=== PATIENT | male | born 1960 | race Caucasian/White ===

== ENCOUNTER 2024-10-24 09:51 | Emergency (ER) | payer BC, SELFPAY ==
[2024-10-24 09:55] VITALS: BP 148/83; PULSE 69; RESP 18; TEMP 37; O2SAT 94; BMI 34.4
--- NOTE | 2024-10-24 10:20 | ED_ITS ---
HPI - General Adult General Chief complaint: Eye Problems Stated complaint: something in left eye Time Seen by Provider: 10/24/24 10:20 Source: patient Mode of arrival: ambulatory Limitations: no limitations History of Present Illness HPI narrative: Left eye 20/50, right eye 20/25. 63-year-old male presents the emergency department for evaluation of tenderness in his left eye. He was mowing yesterday evening and he noticed what felt like a pine needle when he was going under a tree enter his left eye. He tried to clear it with his fingers and initially thought things were improving but awoke today with continued pain, watering and light sensitivity. Does not were contacts. No neurological changes. No fever. Right opposite eye is unaffected. No prior history of eye surgeries. Tried washing his face and rinsing the eye in the shower but with no improvement. Reports benign otherwise past medical history, no HEENT concerns. History of well-controlled hypertension on 2 agents. ROS is notable for the left eye symptoms only, otherwise denies times 12 systems. Triage in visual acuity noted. Related Data Home Medications ?Medication ?Instructions ?Recorded ?Confirmed amlodipine 5 mg tablet (Norvasc) 5 mg PO DAILY 10/24/24 10/24/24 lisinopril 20 1 tab PO DAILY 10/24/24 10/24/24 mg-hydrochlorothiazide 25 mg tablet Allergies Allergy/AdvReac Type Severity Reaction Status Date / Time No Known Drug Allergies Allergy Verified 10/24/24 10:00 Exam 2 Const: Vital Signs, click to edit/add: Vital Signs - 24 hr 10/24/24 09:55 Temperature 98.6 F Pulse Rate [Pulse Oximeter] 69 Respiratory Rate 18 Blood Pressure [Ri ght Upper Arm] 148/83 H Pulse Oximetry 94 Oxygen Delivery Me thod Room Air Documenting provider has reviewed patient's vital signs: yes Common normals: no apparent distress General appearance: cooperative and well kempt Other: Tearing of left eye with photophobia noted. Otherwise well nourished, well hydrated, good historian. HENMT: Common normals: normocephalic, head/scalp atraumatic and oropharynx normal Head and scalp: normocephalic and atraumatic Eye: Other: Photophobia and watering noting in left eye. Initial visual inspection shows no evidence of foreign body. Right eye normal. Normal extraocular movements, pupillary response. Visual acuity noted from triage. Neck & C-Spine: General: normal visual inspection Resp: Common normals: normal respiratory effort Effort & inspection: able to speak in complete sentences Psych: Appearance: well kempt Activity/motor behavior: appropriate eye contact Mood and affect: euthymic mood Attention/concentration: attention grossly intact Memory/cognition: memory grossly intact Insight: insight good Judgement: judgment good Skin: Common normals: no rashes or lesions noted General skin exam: no rashes or lesions noted Course Course ED Course: 63-year-old male with left eye watering and sensitivity. Recommended flourecin exam. Two drops of tetracaine were inserted into the left eye with good anesthesia. Additional 2 drops were then used to facilitate diagram. With this obvious foreign body which is consistent with a triangular-shaped pine needle was seen at 7:00 a.m. on the left cornea. Remainder of eye, lid was swept thoroughly with no evidence of further foreign body noted. Patient was surprised to hear my findings as his symptoms really did localize to more the 11 o'clock position. He was counseled that unfortunately this is not an uncommon phenomenon. Sterile Q-tip with sterile saline to moisten were used above the pine needle off of the cornea, repeat fluorescein staining shows only the abrasion now and does not seem to localize any foreign body. I was then aggressively irrigated with saline to remove any potential on scene foreign body and remove the dye. Two more drops of tetracaine were inserted for patient comfort and patient was counseled as such. Foreign body seems to be removed. Hip this is the case, symptoms should markedly improved within 24 hours. Will begin erythromycin eye ointment every 4 hours for the next 48 hours. If not markedly improved in 24 hours, patient will contact [facility] for urgent appointment. No driving until his vision has improved to normal. Alarm symptoms reviewed that would warrant ED presentation. Okay to use Tylenol and ibuprofen as needed for mild headache and discomfort. Written instructions provided as well. Vital Signs Vital signs: Initial Vital Signs Temperature 98.6 F 10/24/24 09:55 Temperature Source Temporal Artery Scan 10/24/24 09:55 Pulse Rate 69 10/24/24 09:55 Respiratory Rate 18 10/24/24 09:55 Blood Pressure 148/83 H 10/24/24 09:55 Blood Pressure Mean 104 10/24/24 09:55 Blood Pressure Position Sitting 10/24/24 09:55 Pulse Oximetry 94 10/24/24 09:55 Oxygen Delivery Method Room Air 10/24/24 09:55 Vital Signs Temperature 98.6 F 10/24/24 09:55 Pulse Rate 69 10/24/24 09:55 Respiratory Rate 18 10/24/24 09:55 Blood Pressure 148/83 H 10/24/24 09:55 Pulse Oximetry 94 10/24/24 09:55 Oxygen Delivery Method Room Air 10/24/24 09:55 Temperature 98.6 F 10/24/24 09:55 Pulse Rate 69 10/24/24 09:55 Respiratory Rate 18 10/24/24 09:55 Blood Pressure 148/83 H 10/24/24 09:55 Pulse Oximetry 94 10/24/24 09:55 Oxygen Delivery Method Room Air 10/24/24 09:55 Discharge Plan Discharge Clinical Impression: Corneal foreign body Patient Disposition: Home w/ Parent or Adult Condition: Improved Instructions: Eye Foreign Body (ED) Additional Instructions: As we discussed, there was a small foreign body in your eye right around the 7 o'clock position. It is not uncommon that it will feel inflamed in other areas of the eye but I was able to puff out that foreign body which does seem consistent with the pine needle, as you thought. This of course will leave a bit or scratched on the eye where I have oft out bat piece. This should close up in 24-48 hours. We have started you on an antibiotic, erythromycin. But this a small amount inter eye every 4 hours while you are awake for the next 48 hours. Things really should be markedly better in 24 hours. It is okay to use Tylenol and/or ibuprofen as needed for discomfort. The numbing drops that I use will wear off within a couple of hours. Try to avoid bright light and I do not recommend that you drive until your symptoms have improved markedly. If things have not improved quite a bit within 24 hours, please call over to [facility] to be seen urgently to look for other things that I just cannot detect with my equipment here in the emergency room. [phone] is their phone number. Please return if things worsen in the interim or if there are new and expected changes. Activity Level: Activity as Tolerated Discharge Diet: Regular Prescriptions: No Action lisinopril-hydrochlorothiazide 20-25 mg tablet 1 tab PO DAILY amlodipine [Norvasc] 5 mg tablet 5 mg PO DAILY Stand Alone Forms: [employer] Info Instructions
--- OUTSIDE RECORDS SUMMARY | 2024-10-24 11:21 | XMS_ITS | Encounter Summary ---
Author Organization [facility] Address [address] [place] [id number] Care Team Providers Care Restaurant Shift Leader Name Role Phone Gini Sagastume MD Primary Care Provider [phone] Gini Sgaastume MD Unavailable [phone] Ismael Crowe DPM Unavailable [phone] Gini Sagastume MD Primary Care Provider [phone] Encounter Details Date Type Department Care Team (Late st Contact Info) Description 12/06/2023 MyC Medical Advice [facility] [address] [place] [address] [place], [place] [address] [place], [place] [id number] Social History Tobacco Use Types Packs/Day Years Used Date Smoking Tobacco: Former Cigarettes Q uit: 06/26/2010 Passive Smoke Exposure: Past Smokeless Tobacco: Never Alcohol Use Standard Drinks/Week Comments Not Asked 0 (1 standard drink = 0.6 oz pur e alcohol) Social Connection and Isolation Panel [NHANES] A nswer Date Recorded Frequency of Communication with Friends and Fami ly Not on file 09/27/2023 How often do you get together with friends or re latives? Twice a week 09/27/2023 Attends [employer]ars[employer] Services Not on file 09/26 Active Member of Clubs or Organizations Not on f ile 09/27/2023 Attends Club or Organization Meetings Not on jayro e 09/27/2023 Marital Status Not on file 09/27/2023 PHQ-2 Answer Date Recorded PHQ-2 Score 0 08/16/2023 [facility] - Occupational Stress Questionnaire Answer Date Recorded Do you feel stress - tense, restless, nervous, or anxious, or unable to sleep at night because your mind is troubled all the time - these days? Not at all 09/27/2023 Exercise Vital Sign Answer Date Recorde d On average, how many days pe r week do you engage in moderate to strenuous exercise (like a brisk walk)? 7 days 09/27/2023 On average, how many minutes do you engage in exercise at this level? 40 min 09/27/2023 Adolescent Education Answer Date Record ed Getting School Help Needed Not on file 03/18 Food Insecurity Answer Date Recorded Within the past 12 months, d id you worry that your food would run out before you got money to buy more? No 09/27/2023 Within the past 12 months, d id the food you bought just not last and you didn t have money to get more? No 09/27/2023 Housing Stability Answer Date Recorded Do you have housing? (Michele rios is defined as stable permanent housing and does not include staying outside in a car, in a tent, in an abandoned building, in an overnight halfway, or couch-surfing.) Yes 09/27/2023 Are you worried about losing your housing? No 09/27/2023 Financial Resource Strain Answer Date R ecorded Within the past 12 months, h ave you or your family members you live with been unable to get utilities (heat, electricity) when it was really needed? No 09/27/2023 Transportation Needs Answer Date Record ed Within the past 12 months, h as lack of transportation kept you from medical appointments, getting your medicines, non-medical meetings or appointments, work, or from getting things that you need? No 09/27/2023 Interpersonal Safety Answer Date Record ed Do you feel physically and e motionally safe where you currently live? Yes 09/27/2023 Within the past 12 months, h ave you been hit, slapped, kicked or otherwise physically hurt by someone? No 09/27/2023 Within the past 12 months, h ave you been humiliated or emotionally abused in other ways by your partner or ex-partner? No 09/27/2023 Sex and Gender Information Value Date Recorded Sex Assigned at Male 02/19/2024 6:19 PM CDT Legal Sex Male 8:17 AM [employer] Gender Identity Male 02/19/2024 6:19 PM CDT Sexual Orientation Straight 02/19/2024 6: 19 PM CDT documented as of this encounter Miscellaneous Notes * Telephone Encounter - Cristy Hubbard RN - 12/07/2023 8:47 AM CDT Images from the original note were not included. Routing to provider to advise on antibiotics. OV 11/22/23 documented in this encounter Plan of Treatment Not on file documented as of this encounter Visit Diagnoses Not on filedocumented in this encounter Care Teams Restaurant Shift Leader Relationship Specialty Start Date End Date Gini Sagastume MD [address] [place] [id number] PCP - General Family Medicine 08/24/21 03/01/24 Gini Sagastume MD [address] [place] [address] PCP - General Family Medicine 03/02/24 Gini Sagastume MD [address] [place] [address] Assigned PCP 08/22/21 Ismael Crowe DPM [phone] [facility] [id number] Assigned Surgical Provider 02/04/23 08/17/24 documented as of this encounter
--- OUTSIDE RECORDS SUMMARY | 2024-10-24 11:21 | XMS_ITS | Clinical Summary ---
Author Organization [facility] Address [facility] [place] [address] Care Team Providers Care Betting Clerks Name Role Phone Gini Sagastume MD Primary Care Provider Unavailable Allergies No known active allergies Medications multivitamin-min erals therapeutic tablet Take 1 tablet by mouth once daily. Active hydroCHLOROthiaz keya 50 mg tablet Take 50 mg by mouth once daily. 08/15/19 18 Active lisinopril (PRINIVIL; ZESTRIL) 40 mg tablet Take 40 mg by mouth once daily. 08/15/19 18 Active nabumetone (RELAFEN) 750 mg tablet Take 750 mg by mouth once daily if needed for Pain. 05/02/20 17 Active amLODIPine (NORVASC) 5 mg tablet Take 1 Tablet by mouth once daily. 11/01/19 23 Active acetaminophen (Tylenol Extra Strength) 500 mg tablet Take 1,000 mg by mouth every 6 hours. Max acetaminophen dose: 4000mg in 24 hrs. Active cyclobenzaprine (FLEXERIL) 5 mg tablet Take 5 mg by mouth 3 times daily if needed for Muscle Spasm. 03/02/20 24 Active testosterone cypionate (DEPO-TESTOSTERO NE) 200 mg/mL injection Inject 50 mg intramuscular every 2 weeks. On Tuesdays (every 2 weeks) 09/21/19 23 Active cyanocobalamin, vitamin B-12, (VITAMIN B-12 ORAL) Take 1 Tablet by mouth once daily. Active polyethylene glycol (MIRALAX; GLYCOLAX) 17 g per packet packetIndication s:Alcohol-induce d acute pancreatitis without infection or necrosis (HC) One packet daily in water while on oxycodone to prevent constipation. 03/14/20 24 Active oxyCODONE (ROXICODONE) 5 mg immediate release tabletIndication s:Alcohol-induce d acute pancreatitis without infection or necrosis (HC) Take 1 Tablet (5 mg) by mouth every 4 hours if needed for Pain (For moderate to severe pain.). 18 Tablet 03/14/20 24 Active acetaminophen (TYLENOL) 325 mg tabletIndication s:Alcohol-induce d acute pancreatitis without infection or necrosis (HC) Take 2 Tablets (650 mg) by mouth every 4 hours if needed for Pain (For mild pain.). Max acetaminophen dose: 4000mg in 24 hrs. 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 03/12/2024 Fatty liver 03/12/2024 Polyp of colon 10/09/2023 Hypertension Low testosterone Obstructive sleep apnea syndrome, severe Overview (03/12/2024): AHI 75 CPAP 12 Immunizations Immunization Administration Dates Next Due Tdap 11/16/2015 Family History Medical History Relation Name Comments Other Brother Sleep apnea syn drome Diabetes Father Heart attack Father Hypertension Father Diabetes Mother Stroke Mother Relation Name Status Comments Brother Father Mother Social History Tobacco Use Types Packs/Day Years Used Date Smoking Tobacco: Former Cigarettes 1 30 0 01/13/1980 - 01/12/2010 Smokeless Tobacco: Never Alcohol Use Standard Drinks/Week Comments Yes 0 (1 standard drink = 0.6 oz pur e alcohol) 2 beers/day Social Connections Answer Date Recorded Do you often feel lonely or isolated from those around you? 0 03/12/2024 Financial Resource Strain Answer Date R ecorded Difficulty of Paying Living Expenses 3 07/26/2024 Difficulty of Paying Living Expenses Not on file 07/26/2024 Food Insecurity Answer Date Recorded Do you worry your food will run out before you are able to buy more? 1 03/12/2024 Transportation Needs Answer Date Record ed Does lack of transportation keep you from medica l appointments? 1 03/12/2024 Does lack of transportation keep you from work, meetings or getting things that you need? 1 03/12/2024 Housing Stability Answer Date Recorded What is your housing situation today? 1 03/12/2024 Interpersonal Safety Answer Date Record ed Are you being hit, kicked, p ushed or yelled at (see row info)? No 03/12/2024 Interpersonal Safety Abuse 12 - 18 Not on file 03/12/2024 Interpersonal Safety Ambulatory Vulnerability No t on file 03/12/2024 Utilities Answer Date Recorded Do you have trouble paying f or utilities (for example, heat, electricity, water, phone)? 1 03/12/2024 Sex and Gender Information Value Date Recorded Sex Assigned at Not on file Legal Sex Male 12:42 PM CDT Gender Identity Not on file Sexual Orientation Not on file Obstetrics History Last Filed Vital Signs Vital Sign Reading Time Taken Comments Blood Pressure 133/92 03/14/2024 7:38 AM CDT Pulse 73 03/14/2024 7:38 AM CDT Temperature 37.1 C (98.7 F) 03/14/2024 7:38 AM CDT Respiratory Rate 18 03/14/2024 7:38 AM CDT Oxygen Saturation 94% 03/14/2024 7:38 AM CDT Inhaled Oxygen Concentration - - Weight 126.2 kg (278 lb 4.8 oz) 03/14/2024 6:00 AM CDT Height 188 cm (6' 2) 03/12/2024 4:30 PM CDT Body Mass Index 35.73 03/12/2024 4:30 PM CDT Plan of Treatment Health Maintenance Due Date Last Done Comments Depression screening for age 12+ 1973 HIV for age 15-65 1976 BMI (ht and wt on same day) for age 18+ 12/31/1979 Hepatitis C screening for age 18-79 12/31/1979 Lipids for age 45-75 2006 Pneumococcal series for age 50+ (1 of 1 - PCV) 12/31/2011 Zoster (shingles) series for age 50+ (1 of 2) 12/31/2011 RSV vaccine for adults or pr egnancy (1 - Risk 60-74 years 1-dose series) 2021 COVID-19 vaccine series ( season) 2024 05/04/2021, 10/22/2020, 09/24/2020 Influenza Vaccine (Season Ended) 2025 Tetanus booster 11/15/2025 11/16/2015 Colonoscopy through age 75 10/05/2030 10/06/2023 Tdap Completed 11/16/2015 Procedures Procedure Name Priority Date/Time Associated Diagnosis Comments COLONOSCOPY 10/06/2023 8:40 AM CDT from Last 3 Months or Most Recently Relevant to Health Maintenance Results * COLONOSCOPY (10/06/2023 8:40 AM CDT) 10/06/2023 8:40 AM CDT Narrative Transcriptions Souleymane Linares MD - 10/06/2023 9:32 AM CDT Surgical Services - Endoscopy Patient Name: Raymond Zapata Procedure Date: 10/06/2023 Gender: Male Date of : 1960 Admit Type: Ambulatory Procedure: Colonoscopy Proceduralist: Souleymane Linares MD, Ene Nguyen, MICHAEL (Nurse) Indications/Pre-Op Diagnosis: Positive Cologuard test Medications: Monitored Anesthesia Care Procedure Description: The patient indicates that they have read and understood the preoperative endoscopy consent form. The patient indicates they understand the risks and benefits of the procedure. We specifically discussed the risk of bleeding and/or perforation requiringoperation. The patient indicates they have no further questions and wish to proceed. With this in mind the patient is brought to the procedureroom today. The endoscope [id number] was passed through the anus andadvanced to the cecum, identified by appendiceal orifice and ileocecal valve.The ileocecal valve, appendiceal orifice, and rectum were photographed.The entire colon was well visualized. The colonoscopy was performedwithout difficulty. The patient tolerated the procedure well. The quality ofthe bowel preparation was good. The quality of the bowel preparation was evaluated using the BBPS (Ira Bowel Preparation Scale) with scores of: Right Colon = 2 (minor amount of residual staining, smallfragments of stool and/or opaque liquid, but mucosa seen well), TransverseColon = 2 (minor amount of residual staining, small fragments of stool and/or opaque liquid, but mucosa seen well) and Left Colon = 2 (minor amountof residual staining, small fragments of stool and/or opaque liquid, but mucosa seen well). The total BBPS score equals 6. Scope withdrawaltime was 26 minutes. Complications: No immediate complications. Estimated Blood Loss & Specimen: Estimated blood loss was minimal. Specimen collected: Yes and sent to Laboratory Findings: The perianal and digital rectal examinations were normal. A 5 mm polyp was found in the ascending colon. The polyp was semi-pedunculated. The polyp was removed with a cold snare. Resection and retrieval were complete. Two sessile polyps were found in the sigmoid colon. The polyps were 2to 3 mm in size. These polyps were removed with a cold snare. Resectionand retrieval were complete. A 8 mm polyp was found in the distal rectum. The polyp waspedunculated. The polyp was removed with a cold snare. Resection and retrieval were complete. Multiple medium-mouthed diverticula were found in the sigmoidcolon. Impressions/Post-Op Diagnosis: - One 5 mm polyp in the ascending colon, removed with a cold snare. Resected and retrieved. - Two 2 to 3 mm polyps in the sigmoid colon, removed with a coldsnare. Resected and retrieved. - One 8 mm polyp in the distal rectum, removed with a cold snare. Resected and retrieved. - Diverticulosis in the sigmoid colon. Recommendation: - Patient has a contact number available for emergencies. The signsand symptoms of potential delayed complications were discussed with the patient. Return to normal activities tomorrow. Written discharge instructions were provided to the patient. - Repeat colonoscopy date to be determined after pending pathology results are reviewed for surveillance. Souleymane Linares MD 10/06/2023 9:32:16 AM This report has been signed electronically. Note Initiated On: 10/06/2023 8:40 AM Souleymane Linares MD PROCEDURE ORD Fin al Result from Last 3 Months or Most Recently Relevant to Health Maintenance Insurance * Guarantor: Raymond Zapata Account Type Relation to Patient Date of Phone Billing Address Personal/Family Self 1960 [id number] [place] [address] [employer] [facility] * Guarantor: Raymond Zapata Account Type Relation to Patient Date of Phone Billing Address Personal/Family Self 1960 [id number] [place] [id number] [employer] [facility] Advance Directives * Full Code (Latest Code Status on File) Date Activated Date Inactivated Comments 03/12/2024 5:19 PM 03/14/2024 12:17 PM Question Answer Comments Code Status Discussion: Reviewed Preferences * Full Code Date Activated Date Inactivated Comments 10/06/2023 7:17 AM 10/06/2023 1:21 PM Question Answer Comments Code Status Discussion: Unable to Assess Preferences, Provider to review later * Full Code Date Activated Date Inactivated Comments 03/15/2018 1:17 PM 03/15/2018 4:47 PM Question Answer Comments Code Status Discussion: Discussed * Full Code Date Activated Date Inactivated Comments 03/15/2018 11:57 AM 03/15/2018 1:17 PM * Full Code Date Activated Date Inactivated Comments 03/15/2018 10:41 AM 03/15/2018 11:57 AM Care Teams Betting Clerks Relationship Specialty Start Date End Date Gini Sagastume MD [address] [place] [address] PCP - General Family Practice 01/12/13
--- OUTSIDE RECORDS SUMMARY | 2024-10-24 11:21 | XMS_ITS | Encounter Summary ---
Author Organization [place] Address [address] [place] [address] Care Team Providers Care Bottling Room Worker Name Role Phone Gini Sagastume MD Unavailable [phone] Gini Sagastume MD Primary Care Provider [phone] Encounter Details Date Type Department Care Team (Latest Contact Info) Description 10/01/2024 Travel Social History Tobacco Use Types Packs/Day Years Used Date Smoking Tobacco: Former Cigarettes Q uit: 06/26/2010 Passive Smoke Exposure: Past Smokeless Tobacco: Never Alcohol Use Standard Drinks/Week Comments Not Asked 0 (1 standard drink = 0.6 oz pur e alcohol) Social Connection and Isolation Panel [NHANES] A nswer Date Recorded Frequency of Communication with Friends and Fami ly Not on file 10/01/2024 How often do you get togethe r with friends or relatives? Three times a week 10/01/2024 Attends Confucianist Services Not on file 10/01 Active Member of Clubs or Organizations Not on f ile 10/01/2024 Attends Club or Organization Meetings Not on jayro e 10/01/2024 Marital Status Not on file 10/01/2024 PHQ-2 Answer Date Recorded PHQ-2 Score 0 10/02/2024 [facility] [place] [facility] Occupat ional Health - Occupational Stress Questionnaire Answer Date Recorded Do you feel stress - tense, restless, nervous, or anxious, or unable to sleep at night because your mind is troubled all the time - these days? Not at all 10/01/2024 Exercise Vital Sign Answer Date Recorde d On average, how many days pe r week do you engage in moderate to strenuous exercise (like a brisk walk)? 6 days 10/01/2024 On average, how many minutes do you engage in exercise at this level? 60 min 10/01/2024 Adolescent Education Answer Date Record ed Getting School Help Needed Not on file 03/18 Food Insecurity Answer Date Recorded Within the past 12 months, d id you worry that your food would run out before you got money to buy more? No 10/01/2024 Within the past 12 months, d id the food you bought just not last and you didn t have money to get more? No 10/01/2024 Housing Stability Answer Date Recorded Do you have housing? (Housin g is defined as stable permanent housing and does not include staying outside in a car, in a tent, in an abandoned building, in an overnight long-term, or couch-surfing.) Yes 10/01/2024 Are you worried about losing your housing? No 10/01/2024 Financial Resource Strain Answer Date R ecorded Within the past 12 months, h ave you or your family members you live with been unable to get utilities (heat, electricity) when it was really needed? No 10/01/2024 Transportation Needs Answer Date Record ed Within the past 12 months, h as lack of transportation kept you from medical appointments, getting your medicines, non-medical meetings or appointments, work, or from getting things that you need? No 10/01/2024 Interpersonal Safety Answer Date Record ed Do you feel physically and e motionally safe where you currently live? Yes 10/02/2024 Within the past 12 months, h ave you been hit, slapped, kicked or otherwise physically hurt by someone? No 10/02/2024 Within the past 12 months, h ave you been humiliated or emotionally abused in other ways by your partner or ex-partner? No 10/02/2024 Sex and Gender Information Value Date Recorded Sex Assigned at Male 02/19/2024 6:19 PM CDT Legal Sex Male 8:17 AM MANAGER BEVERAGE Gender Identity Male 02/19/2024 6:19 PM CDT Sexual Orientation Straight 02/19/2024 6: 19 PM CDT documented as of this encounter Plan of Treatment Not on file documented as of this encounter Visit Diagnoses Not on filedocumented in this encounter Care Teams Bottling Room Worker Relationship Specialty Start Date End Date Gini Sagastume MD [address] [place] [address] PCP - General Family Medicine 03/02/24 Gini Sagastume MD [address] [place] [address] Assigned PCP 08/22/21 documented as of this encounter
--- OUTSIDE RECORDS SUMMARY | 2024-10-24 11:21 | XMS_ITS | Encounter Summary ---
Author Organization [place] Address [address] [place] [address] Care Team Providers Care Box Nailer Name Role Phone Gini Sagastume MD Primary Care Provider [phone] Gini Sagastume MD Unavailable [phone] Ismael Crowe DPM Unavailable [phone] Gini Sagastume MD Primary Care Provider [phone] Reason for Visit * Reason Comments Medication Refill Encounter Details Date Type Department Care Team (Late st Contact Info) Description 07/25/2022 Refill [facility] [address] [place] [address] Scotty Lai PA [address] [place], [place] [id number] Medication Refill Social History Tobacco Use Types Packs/Day Years Used Date Smoking Tobacco: Former Smokeless Tobacco: Never Alcohol Use Standard Drinks/Week Comments Not Asked 0 (1 standard drink = 0.6 oz pur e alcohol) Sex and Gender Information Value Date Recorded Sex Assigned at Male 02/19/2024 6:19 PM CDT Legal Sex Male 8:17 AM LEAD WELDER Gender Identity Male 02/19/2024 6:19 PM CDT Sexual Orientation Straight 02/19/2024 6: 19 PM CDT COVID-19 Exposure Response Date Recorded In the last 10 days, have yo u been in contact with someone who was confirmed or suspected to have Coronavirus/COVID-19? No / Unsure 07/26/2022 3:30 PM LEAD WELDER documented as of this encounter Miscellaneous Notes * Telephone Encounter - Yi Lala - 07/27/2022 12:13 PM CST Pt scheduled with [facility] 2.22.23 WELDER * Telephone Encounter - Gini Sagastume MD - 07/27/2022 10:20 AM LEAD WELDER Please contact patient. Due for visit with me. I sent in 30 day supply WELDER * Telephone Encounter - Corey Bowen RN - 07/27/2022 9:47 AM CST Images from the original note were not included. Routing refill request to provider for review/approval because: No Provider appts, many RN upcoming appts Care team please reach out to patient to schedule appointment Blood pressure under 140/90 in past 12 months Normal ALT on file in past 12 months Normal AST on file in past 12 months Normal CBC on file in past 12 months Medication is active on med list Normal serum creatinine on file in past 12 months MICHAEL [facility] WELDER documented in this encounter Plan of Treatment Not on file documented as of this encounter Visit Diagnoses Diagnosis Pain- Primary Generalized pain documented in this encounter Care Teams Box Nailer Relationship Specialty Start Date End Date Gini Sagastume MD [address] [place] [address] PCP - General Family Medicine 08/24/21 03/01/24 Gini Sagastume MD [address] [place] [address] PCP - General Family Medicine 03/02/24 Gini Sagastume MD [address] [place] [address] Assigned PCP 08/22/21 Ismael Crowe DPM [address] [facility] [place] [address] Assigned Surgical Provider 02/04/23 08/17/24 documented as of this encounter
--- OUTSIDE RECORDS SUMMARY | 2024-10-24 11:21 | XMS_ITS | Clinical Summary ---
Author Organization [place] Address [address] [place] [address] Care Team Providers Care Aircraft Systems Repairer Name Role Phone Gini Sagastume MD Unavailable [phone] Gini Sagastume MD Primary Care Provider [phone] Allergies No known active allergies Medications Multiple Vitamins-Mineral s (MULTIVITAMIN OR) Active acetaminophen (TYLENOL) 325 MG tablet Take 650 mg by mouth. 03/14/20 24 Active cyanocobalamin (VITAMIN B-12) 1000 MCG tablet Take 1 tablet by mouth daily. Active syringe/needle, disp, (B-D LUER-MITRA SYRINGE) 23G X 1 3 ML MISCIndications: Other specified abnormal findings of blood chemistry USE DIRECTED 6 each 4 09/06/19 25 Active Needle, Disp, (BD DISP NEEDLES) 18G X 1-1/2 MISCIndications: Other specified abnormal findings of blood chemistry USE DIRECTED 6 each 09/06/19 25 Active testosterone cypionate (DEPOTESTOSTERON E) 200 MG/ML injectionIndicat ions:Low testosterone in male Inject 0.25 mLs (50 mg) into the muscle every 14 days 1 mL 5 09/06/19 25 Active nabumetone (RELAFEN) 750 MG tabletIndication s:Pain Take 1 tablet (750 mg) by mouth daily. 30 tablet 5 10/03/19 25 Active amLODIPine (NORVASC) 5 MG tabletIndication s:Primary hypertension Take 1 tablet (5 mg) by mouth daily. 90 tablet 4 10/03/19 25 Active hydrochlorothiaz keya (HYDRODIURIL) 50 MG tabletIndication s:Primary hypertension Take 1 tablet (50 mg) by mouth daily. 90 tablet 4 10/03/19 25 Active lisinopril (ZESTRIL) 40 MG tabletIndication s:Primary hypertension Take 1 tablet (40 mg) by mouth daily. 90 tablet 4 10/03/19 25 Active syringe, disposable, 1 ML MISCIndications: Low testosterone in male 1 each every 28 (twenty-eigh t) days 3 each 4 07/06/19 24 025 Discontinued (Therapy completed (No AVS)) Needle, Disp, (B-D DISP NEEDLE) 25G X 1 MISCIndications: Low testosterone in male 1 each every 28 (twenty-eigh t) days 3 each 4 07/06/19 24 025 Discontinued (Therapy completed (No AVS)) nabumetone (RELAFEN) 750 MG tabletIndication s:Pain Take 1 tablet (750 mg) by mouth daily 30 tablet 5 09/06/19 24 025 Discontinued (Reorder (No AVS)) cyclobenzaprine (FLEXERIL) 5 MG tabletIndication s:Acute right-sided low back pain with right-sided sciatica Take 1 tablet (5 mg) by mouth 3 times daily as needed for muscle spasms. 30 tablet 03/02/20 24 025 Discontinued (Med Rec(No AVS / No eCancel)) oxyCODONE (ROXICODONE) 5 MG tablet Take 5 mg by mouth. 03/14/20 24 025 Discontinued (Med Rec(No AVS / No eCancel)) amLODIPine (NORVASC) 5 MG tabletIndication s:Primary hypertension Take 1 tablet (5 mg) by mouth daily 90 tablet 1 06/17/20 24 025 Discontinued (Reorder (No AVS)) lisinopril (ZESTRIL) 40 MG tabletIndication s:Primary hypertension TAKE ONE TABLET BY MOUTH DAILY 90 tablet 1 08/13/19 25 025 Discontinued (Reorder (No AVS)) hydrochlorothiaz keya (HYDRODIURIL) 50 MG tabletIndication s:Primary hypertension TAKE ONE TABLET BY MOUTH DAILY 90 tablet 1 08/13/19 25 025 Discontinued (Reorder (No AVS)) Active Problems Problem Noted Date Diagnosed Date Fatty liver 03/12/2024 Polyp of colon 10/09/2023 Class 2 severe obesity due t o excess calories with serious comorbidity in adult 01/30/2023 Hypertension 04/19/2022 Obesity 04/19/2022 Periodic limb movement disorder 04/19/2022 Restless legs syndrome 04/19/2022 Obstructive sleep apnea syndrome, severe 017 Overview (03/19/2024): AHI 75 CPAP 12 Low testosterone 08/07/2012 Resolved Problems Problem Noted Date Diagnosed Date Resolved Date Alcohol-induced acute pancre atitis without infection or necrosis 03/12/2024 03/19/2024 Encounters Date Type Department Care Team Description 10/02/2024 5:00 PM CDT Office Visit [address] [address] Gini Sagastume MD Routine general medical examination at a health care facility (Primary Dx); Screening for prostate cancer; Pain; Primary hypertension; Elevated prostate specific antigen (PSA); Class 2 severe obesity due to excess calories with serious comorbidity and body mass index (BMI) of 37.0 to 37.9 in adult (H); Low testosterone; Fatty liver 10/01/2024 Travel 09/05/[address] [address] Gini Sagastume MD Medication Refill 08/13/[address] [address] Gini Sagastume MD Medication Refill 08/07/2024 5:00 PM FLIGHT TEST SHOP MECHANIC Ancillary Procedure [address] [address] Scotty Lai PA Left anterior shoulder pain 08/06/2024 7:00 AM FLIGHT TEST SHOP MECHANIC Office Visit [address] [address] Scotty Lai PA Left anterior shoulder pain (Primary Dx) 08/06/2024 Travel from Last 3 Months Immunizations Name Administration Dates Next Due COVID-19 Monovalent 18+ (Moderna) 05/04/2021,,09/24/2020 Flu, Unspecified 03/27/2020 Hepatitis B, Adult (Energix- B/Recombivax HB) 05/31/2022,05/03/2022 Influenza Vaccine 18-64 (Flublok) 04/18/2023,,04/06/2021 Influenza Vaccine >6 months,quad, PF 03/26/2019 Influenza Vaccine Trivalent (FluBlok) 03/19/2024 Influenza Vaccine, 6+MO IM ( QUADRIVALENT W/PRESERVATIVES) 03/26/2019 Influenza,INJ,MDCK,PF,Quad >6mo(Flucelvax) 03/27 TDAP (Adacel,Boostrix) 11/16/2015 Zoster recombinant adjuvanted (Shingrix) 024,05/03/2022 Social History Tobacco Use Types Packs/Day Years Used Date Smoking Tobacco: Former Cigarettes Q uit: 06/26/2010 Passive Smoke Exposure: Past Smokeless Tobacco: Never Tobacco Cessation:Counseling Given: Not Answered Alcohol Use Standard Drinks/Week Comments Not Asked 0 (1 standard drink = 0.6 oz pur e alcohol) Social Connection and Isolation Panel [NHANES] A nswer Date Recorded Frequency of Communication with Friends and Fami ly Not on file 10/01/2024 How often do you get togethe r with friends or relatives? Three times a week 10/01/2024 Attends Taoist Services Not on file 10/01 Active Member of Clubs or Organizations Not on f ile 10/01/2024 Attends Club or Organization Meetings Not on jayro e 10/01/2024 Marital Status Not on file 10/01/2024 PHQ-2 Answer Date Recorded PHQ-2 Score 0 10/02/2024 [facility] [place] of Occupat ional Health - Occupational Stress [...] Date Recorded Do you have housing? (Michele g is defined as stable permanent housing and does not include staying outside in a car, in a tent, in an abandoned building, in an overnight nursing home, or couch-surfing.) Yes 10/01/2024 Are you worried [...] PM CDT Legal Sex Male 8:17 AM FLIGHT TEST SHOP MECHANIC Gender Identity Male 02/19/2024 6:19 PM CDT Sexual Orientation Straight 02/19/2024 6: 19 PM CDT Last Filed Vital Signs Vital Sign Reading Time Taken Comments Blood Pressure 132/80 10/02/2024 4:58 PM CDT Pulse 65 10/02/2024 4:58 PM CDT Temperature 36.6 C (97.8 F) 10/02/2024 4:58 PM CDT Respiratory Rate 16 10/02/2024 4:58 PM CDT Oxygen Saturation 96% 10/02/2024 4:58 PM CDT Inhaled Oxygen Concentration - - Weight 133.4 kg (294 lb 3.2 oz) 10/02/2024 4:58 PM CDT Height 189.7 cm (6' 2.69) 10/02/2024 4:58 PM CD T Body Mass Index 37.08 10/02/2024 4:58 PM CDT Plan of Treatment Health Maintenance Due Date Last Done Comments CT COLONOGRAPHY 1960 FLEX SIG 1960 Pneumococcal Vaccine: 50+ Years (1 of 1 - PCV) 12/31/2011 FIT 03/18/2020 03/18/2019 COVID-19 Vaccine ( season) 2024 05/04/2021, 10/22/2020, 09/24/2020 ANNUAL REVIEW OF HM ORDERS 08/06/202508/06, 08/16/2023, 09/07/2022 BMP 10/02/2025 10/02/2024, 04/0 08/2023, 09/10/2022, Additional history exists LIPID 10/02/2025 10/02/2024, 04/0 08/2023, 09/10/2022, Additional history exists PSA 10/02/2025 10/02/2024, 04/0 08/2023, 09/27/2023, Additional history exists YEARLY PREVENTIVE VISIT 10/02/2025 10/02/2024, 09/26 DTAP/TDAP/TD IMMUNIZATION (2 - Td or Tdap) 11/15/2025 11/16/2015 sDNA (Cologuard) 08/27/2026 08/28/2023, 02/03/2021 DIABETES SCREENING 10/03/2027 10/02/2024, 0 09/27/2023, 09/10/2022, Additional history exists ADVANCE CARE PLANNING 10/02/2029 10/02/2024 , 09/27/2023, 09/27/2023 COLONOSCOPY 10/05/2030 10/06/2023 COLORECTAL CANCER SCREENING 10/05/2030 RSV VACCINE (1 - 1-dose 75+ series) 2036 INFLUENZA VACCINE Completed 03/19/2024, , 04/19/2022, Additional history exists ZOSTER IMMUNIZATION Completed 03/19/2024, 2 PHQ-2 (once per calendar year) Completed 10/02/2024, 08/06/2024, 08/16/2023, Additional history exists HEPATITIS C SCREENING Discontinued HIV SCREENING Discontinued HPV IMMUNIZATION Aged Out No longer e ligible based on patient's age to complete this topic LUNG CANCER SCREENING Discontinued MENINGITIS IMMUNIZATION Aged Out No l onger eligible based on patient's age to complete this topic Procedures Procedure Name Priority Date/Time Associated Diagnosis Comments COMPREHENSIVE METABOLIC PANEL Routine 10/02/2024 5:25 PM CDT Fatty liver PROSTATE SPECIFIC ANTIGEN SCREEN Routine 10/02/2024 5:25 PM CDT Screening for prostate cancer LIPID REFLEX TO DIRECT LDL PANEL Routine 10/02/2024 5:25 PM CDT Fatty liver XR SHOULDER LEFT G/E 3 VIEWS STAT 08/07/2024 4:55 PM FLIGHT TEST SHOP MECHANIC Left anterior shoulder pain ABSTRACT COLOGUARD-NO CHARGE Routine 02/03/2021 5:15 AM CDT FECAL COLORECTAL CANCER SCREEN FIT Routine 03/18/2019 1:01 PM CDT from Last 3 Months or Most Recently Relevant to Health Maintenance Results * (ABNORMAL) PROSTATE SPEC ANTIGEN SCREEN (10/02/2024 5:25 PM CDT) Prostate Specific Antigen Screen 10.90(H) 0.00 - 4.50 ng/mL 10/03/2024 3:03 PM CDT [facility] Blood BLOOD SPECIMEN / Unknown Venipuncture / Unknown 10/02/2024 5:25 PM CDT 10/02/2024 5:25 PM CDT Narrative [facility] - 10/03/2024 3:03 PM CDT This result is obtained using the Yousif Elecsys total PSA method on the fredy e801 immunoassay analyzer, which is an ultrasensitive method. Results obtained with different assay methods or kits cannot be used interchangeably. This test is intended for initial prostate cancer screening. PSA values exceeding the age-specific limits are suspicious for prostate disease, but additional testing, such as prostate biopsy, is needed to diagnose prostate pathology. The [employer] [employer] recommends annual examination with digital rectal examination and serum PSA beginning at age 50 and for men with a life expectancy of at least 10 years after detection of prostate cancer. For men in high-risk groups, such as Americans or men with a first-degree relative diagnosed at a younger age, testing should begin at a younger age. It is generally recommended that information be provided to patients about the benefits and limitations of testing and treatment so they can make informed decisions. us Gini Sagastume MD LAB - BLOOD ORDERABLES Jami dinero Result [facility] [address], [address] [place] [address] * (ABNORMAL) Lipid panel reflex to direct LDL Non-fasting (10/02/2024 5:25 PM CDT) Cholesterol 174 <200 mg/dL 10/03/2024 3:03 PM CDT [facility] Triglycerides 130 <150 mg/dL 10/03/2024 3:03 PM CDT [facility] Direct Measure HDL 36(L) >=40 mg/dL 10/03/2024 3:03 PM CDT [facility] LDL Cholesterol Calculated 112(H) <100 mg/dL 10/03/2024 3:03 PM CDT [facility] Non HDL Cholesterol 138(H) <130 mg/dL 10/03/2024 3:03 PM CDT [facility] Patient Fasting > 8hrs? No 10/03/2024 3:03 PM CDT [facility] Blood BLOOD SPECIMEN / Unknown Venipuncture / Unknown 10/02/2024 5:25 PM CDT 10/02/2024 5:25 PM CDT Narrative [facility] - 10/03/2024 3:03 PM CDT Cholesterol Desirable: < 200 mg/dL Borderline High: 200 - 239 mg/dL High: >= 240 mg/dL Triglycerides Normal: < 150 mg/dL Borderline High: 150 - 199 mg/dL High: 200-499 mg/dL Very High: >= 500 mg/dL Direct Measure HDL Female: >= 50 mg/dL Male: >= 40 mg/dL LDL Cholesterol Desirable: < 100 mg/dL Above Desirable: 100 - 129 mg/dL Borderline High: 130 - 159 mg/dL High: 160 - 189 mg/dL Very High: >= 190 mg/dL Non HDL Cholesterol Desirable: < 130 mg/dL Above Desirable: 130 - 159 mg/dL Borderline High: 160 - 189 mg/dL High: 190 - 219 mg/dL Very High: >= 220 mg/dL us Gini Sagastume MD LAB - BLOOD ORDERABLES Jami l Result [facility] [address] [place] [address] * Comprehensive metabolic panel (10/02/2024 5:25 PM CDT) Sodium 138 135 - 145 mmol/L 10/03/2024 3:03 PM CDT [facility] Potassium 3.9 3.4 - 5.3 mmol/L 10/03/2024 3:03 PM CDT [facility] Carbon Dioxide (CO2) 25 22 - 29 mmol/L 10/03/2024 3:03 PM CDT [facility] Anion Gap 13 7 - 15 mmol/L 10/03/2024 3:03 PM CDT [facility] Urea Nitrogen 18.7 8.0 - 23.0 mg/dL 10/03/2024 3:03 PM CDT [facility] Creatinine 0.84 0.67 - 1.17 mg/dL 10/03/2024 3:03 PM CDT [facility] GFR Estimate >90 >60 mL/min/1.7 3m2 10/03/2024 3:03 PM CDT [facility] Comment:eGFR calculated us2020 CKD-EPI equation. Calcium 9.9 8.8 - 10.4 mg/dL 10/03/2024 3:03 PM CDT [facility] Chloride 100 98 - 107 mmol/L 10/03/2024 3:03 PM CDT [facility] Glucose 96 70 - 99 mg/dL 10/03/2024 3:03 PM CDT [facility] Alkaline Phosphatase 56 40 - 150 U/L 10/03/2024 3:03 PM CDT [facility] AST 35 0 - 45 U/L 10/03/2024 3:03 PM CDT [facility] ALT 61 0 - 70 U/L 10/03/2024 3:03 PM CDT [facility] Protein Total 7.0 6.4 - 8.3 g/dL 10/03/2024 3:03 PM CDT [facility] Albumin 4.4 3.5 - 5.2 g/dL 10/03/2024 3:03 PM CDT [facility] Bilirubin Total 0.7 <=1.2 mg/dL 10/03/2024 3:03 PM CDT [facility] Patient Fasting > 8hrs? No 10/03/2024 3:03 PM CDT [facility] Blood BLOOD SPECIMEN / Unknown Venipuncture / Unknown 10/02/2024 5:25 PM CDT 10/02/2024 5:25 PM CDT Gini Sagastume MD LAB - BLOOD ORDERABLES Jami dinero Result [facility] [address] [facility] [address] [facility] [place] [address] * XR Shoulder Left G/E 3 Views (08/07/2024 4:55 PM FLIGHT TEST SHOP MECHANIC) Anatomical Region Laterality Modality Shoulder, Left Shoulder Left Computed Radiography 08/07/2024 4:55 PM FLIGHT TEST SHOP MECHANIC Impressions 08/07/2024 5:53 PM FLIGHT TEST SHOP MECHANIC IMPRESSION: Mild osteoarthrosis of the AC joint and glenohumeral joint. Otherwise negative. No evidence of fracture. No subluxation or dislocation. Narrative 08/07/2024 5:53 PM FLIGHT TEST SHOP MECHANIC EXAM: XR SHOULDER LEFT G/E 3 VIEWS LOCATION: [facility] DATE: 08/07/2024 INDICATION: Left anterior shoulder pain. COMPARISON: None. Procedure Note Ryan Vazquez MD - 08/07/2024 EXAM: XR SHOULDER LEFT G/E 3 VIEWS LOCATION: [facility] DATE: 08/07/2024 INDICATION: Left anterior shoulder pain. COMPARISON: None. IMPRESSION: Mild osteoarthrosis of the AC joint and glenohumeral joint.Otherwise negative. No evidence of fracture. No subluxation ordislocation. Scotty [facility] ORDERA BLES Final Result * ABSTRACT COLOGUARD-NO CHARGE (02/03/2021 5:15 AM CDT) COLOGUARD-ABST RACT Negative [facility] 02/03/2021 5:15 AM CDT Narrative [facility] - 02/03/2021 5:15 AM CDT [facility] Lab Result Provider Outside LABORATORY Final Result [facility] [address] [place] [id number], [facility] [phone] * Fecal colorectal cancer screen FIT (03/18/2019 1:01 PM CDT) Occult Blood Screen FIT Positive [facility] 03/18/2019 1:01 PM CDT Narrative [facility] - 03/18/2019 1:01 PM CDT POC Test Comments: FWD to [facility] FIT POC Test Comments: Lab Test Performed by: [facility] [address] [place] [address] Historical Provider LAB - STOOLS ORDERABLES Ajmi l Result [facility] [address] [place] [address], [facility] [phone] from Last 3 Months or Most Recently Relevant to Health Maintenance Insurance * Guarantor: Raymond Zapata Account Type Relation to Patient Date of Phone Billing Address Personal/Family Self 1960 [id number] [place] [address] * Guarantor: Raymond Zapata Account Type Relation to Patient Date of Phone Billing Address Personal/Family Self 1960 [id number] [place] [address] BC[employer] OUT OF STATE * Guarantor: Raymond Zapata Account Type Relation to Patient Date of Phone Billing Address Personal/Family Self 1960 [id number] [place] [address] [employer] OUT OF STATE Care Teams Aircraft Systems Repairer Relationship Specialty Start Date End Date Gini Sagastume MD [address] [place] [address] PCP - General Family Medicine 03/02/24 Gini Sagastume MD [address] [place] [address] Assigned PCP 08/22/21
--- OUTSIDE RECORDS SUMMARY | 2024-10-24 11:21 | XMS_ITS | Clinical Summary ---
Author Organization [facility] Address [address] [place] [address] Care Team Providers Care Blood Bank Calendar Control Clerk Name Role Phone None Reported, Pcp Primary Care Provider Unavail able Source Comments Patient records contain information from all sites at [facility]. For routine questions regarding patient records, call [phone] during business hours, M-F 8:00 AM - 5:00 PM Central Time. Record requests for emergency care only can be directed to [phone] at any time.[facility] Allergies No known active allergies Medications testosterone cypionate (DEPO-TESTOSTERO NE) 200 mg/mL injection Inject 50 mg intramuscul ursula. 09/20/2022 Active BD Luer-Carmen Syringe 3 mL 23 x 1 syringe 07/07/2023 Active BD Regular Bevel [place] 18 gauge x 1 1/2 needle 07/07/2023 Act huang nabumetone (RELAFEN) 750 mg tablet Take 750 mg by mouth daily as needed for pain. Active multivitamin,tx- minerals (Super Thera Diana M) tablet Take 1 tablet by mouth daily. Active hydroCHLOROthiaz keya (HYDRODIURIL) 50 mg tablet Take 50 mg by mouth daily. 09/07/2022 Active amLODIPine (NORVASC) 5 mg tablet Take 1 tablet by mouth daily. 08/16/2023 Active lisinopriL (PRINIVIL,ZESTRI L) 40 mg tablet Take 1 tablet by mouth daily. 08/16/2023 Active Active Problems Problem Noted Date Diagnosed Date Morbid Severe Obesity Due To Excess Calories 12/2022 Restless Leg Syndrome 04/19/2022 Periodic Limb Movement Disorder 04/19/2022 Hypertension Essential Primary 09/17/2018 Apnea Sleep Obstructive 05/31/2017 Other Specified Abnormal Findings Of Blood Chemi stry 08/07/2012 Immunizations Immunization Administration Dates Next Due HepB Adult 05/31/2022,05/03/2022 Influenza, Injectable, Mdck, Preservative Free, Quadrivalent 03/27/2020 Influenza, Injectable, Quadrivalent 03/26/2019 Influenza, Unspecified 03/27/2020 RZV (SHINGRIX) 05/03/2022 Tdap 11/16/2015 influenza vaccine QV(FLUBLOK ) (18 years or older) (PF) 04/18/2023,04/19/2022,04/06/2021 influenza vaccine quad (FLUZ ONE/FLUARIX) (6 months and older)(PF) 03/26/2019 Family History Medical History Relation Name Comments Leukemia Brother Marvin Zapata Diabetes Father Enrrique Zapata SR. Hypertension Father Enrrique Zapata SR. Sleep apnea Father Enrrique Zapata SR. Stroke Father Enrrique Jodi SR. Arthritis Mother Angie Zapata Relation Name Status Comments Brother Marvin Zapata Father Enrrique Aguilaryoungodette SR. Mother Angie Zapata Social History Tobacco Use Types Packs/Day Years Used Date Smoking Tobacco: Never Smokeless Tobacco: Never Alcohol Use Standard Drinks/Week Comments Yes 6 (1 standard drink = 0.6 oz pur e alcohol) [facility] Utilities Answer Date Recorded In the past 12 months has [facility], [employer], oil, or water [employer] threatened to shut off services in your home? Patient declined 07/12/2023 PHQ-2 Answer Date Recorded PHQ-2 Score 0 07/12/2023 Exercise Vital Sign Answer Date Recorde d On average, how many days pe r week do you engage in moderate to strenuous exercise (like a brisk walk)? Patient declined On average, how many minutes do you engage in exercise at this level? Patient declined 07/12/2023 Hunger Vital Sign Answer Date Recorded Within the past 12 months, y ou worried that your food would run out before you got the money to buy more. Patient declined Within the past 12 months, t he food you bought just didn't last and you didn't have money to get more. Patient declined PRAPARE - Transportation Answer Date Re corded In the past 12 months, has l ack of transportation kept you from medical appointments or from getting medications? Patient declined 07/12/2023 In the past 12 months, has l ack of transportation kept you from meetings, work, or from getting things needed for daily living? Patient declined 07/12/2023 Nutrition Answer Date Recorded Nutrition: EVOO Fat Source Unknown 07/12 On average, how many serving s of fruits and vegetables do you eat per day (serving size is equal to 1 cup or approximately the size of a tennis ball)? 5 or more 07/12/2023 Dental Answer Date Recorded Dental: Regular Dentist Yes 07/12/19 Employment Answer Date Recorded Employment status Employed and actively working without restrictions 07/12/2023 Housing Stability Answer Date Recorded What is your living situation today? Patient dec lined 07/12/2023 Sex and Gender Information Value Date Recorded Sex Assigned at Male 07/24/2019 2:17 PM TOBACCO HANGER Legal Sex Male 6:34 PM TOBACCO HANGER Gender Identity Male 07/24/2019 2:17 PM TOBACCO HANGER Sexual Orientation Choose not to disclose 2019 2:17 PM TOBACCO HANGER Last Filed Vital Signs Vital Sign Reading Time Taken Comments Blood Pressure 137/88 07/12/2023 5:03 PM TOBACCO HANGER Pulse 76 07/12/2023 5:03 PM TOBACCO HANGER Temperature 36.2 C (97.1 F) 07/12/2023 5:03 PM TOBACCO HANGER Respiratory Rate 14 09/17/2018 4:12 PM CDT Oxygen Saturation 98% 09/17/2018 4:12 PM CDT Inhaled Oxygen Concentration - - Weight 132 kg (290 lb 9.1 oz) 07/12/2023 5:03 PM TOBACCO HANGER Height 190.5 cm (6' 3) 07/12/2023 5:03 PM TOBACCO HANGER Body Mass Index 36.32 07/12/2023 5:03 PM TOBACCO HANGER Plan of Treatment Health Maintenance Due Date Last Done Comments Colonoscopy After Positive Cologuard 1960 HIV Screening 1960 Hepatitis C Screening 1960 Pneumococcal vaccine (50+ years) (1 of 1 - PCV) 12/31/2011 Zoster Vaccines (2 of 2) 06/28/2022 05/03/2022 Hepatitis B Vaccines (3 of 3 - 19+ 3-dose series) 10/31/2022 05/31/2022, 05/03/2022 Creatinine Level (Kidney Function Test) 09/11/2023 09/10/2022, 07/24/2021, 08/04/2020, Additional history exists Potassium Level 09/11/2023 09/10/2022, 06/27, 08/04/2020, Additional history exists Sodium Level 09/11/2023 09/10/2022, 06/27, 08/04/2020, Additional history exists COVID-19 Vaccine ( season) 2024 05/04/2021, 10/22/2020, 09/24/2020 Influenza Vaccine (#1) 2024 , 04/19/2022, 04/06/2021, Additional history exists Depression Screening (Annual PHQ-2) 06/26/2024 Office Visit for Blood Pressure Check / Re-check 07/12/2024 07/12/2023 Fasting Glucose for Diabetes Screening 09/10/2025 09/10/2022, 07/24/2021, 08/04/2020, Additional history exists DTaP,Tdap,and Td Vaccines (2 - Td or Tdap) 11/15/2025 11/16/2015 Lipid (Cholesterol) Screening 09/11/2027 09/10/2022, 07/24/2021, 08/04/2020, Additional history exists Cologuard Discontinued 08/28/2023, 02/03/2021 Colorectal Cancer Screening Discontinued Colorectal Cancer Surveillance Discontinued CT Colonography Discontinued CT Colonography Discontinued Colonoscopy Discontinued Colonoscopy Discontinued FIT Discontinued IPV Vaccines Aged Out No longer eligi ble based on patient's age to complete this topic Procedures Procedure Name Priority Date/Time Associated Diagnosis Comments COLOGUARD Routine 08/28/2023 4:45 AM TOBACCO HANGER Screening Cancer Colon from Last 3 Months or Most Recently Relevant to Health Maintenance Results * (ABNORMAL) Cologuard - Sent Out Lab (08/28/2023 4:45 AM TOBACCO HANGER) Pathologist [facility] Result Positive( A) Negative 09/06/2023 12:58 AM CDT EXLI Comment: POSITIVE TEST RESULT. A positive Cologuard result should be followed with a colonoscopy or visual examination of the colon. The normal value (reference range) for this assay is negative. TEST DESCRIPTION: Composite algorithmic analysis of stool DNA-biomarkers with hemoglobin immunoassay. Quantitative values of individual biomarkers are not reportable and are not associated with individual biomarker result reference ranges. Cologuard is intended for colorectal cancer screening of adults of either sex, 45 years or older, who are at average-risk for colorectal cancer (CRC). Cologuard has been approved for use by the U.S. FDA. The performance of Cologuard was established in a cross sectional study of average-risk adults aged 50-84. Cologuard performance in patients ages 45 to 49 years was estimated by sub-group analysis of near-age groups. Colonoscopies performed for a positive result may find as the most clinically significant lesion: colorectal cancer [4.0%], advanced adenoma (including sessile serrated polyps greater than or equal to 1cm diameter) [20%] or non- advanced adenoma [31%]; or no colorectal neoplasia [45%]. These estimates are derived from a prospective cross-sectional screening study of 10,000 individuals at average risk for colorectal cancer who were screened with both Cologuard and colonoscopy. (Praveen Mack al, N Engl J Med 2014;370(14):6269-2217.) Cologuard may produce a false negative or false positive result (no colorectal cancer or precancerous polyp present at colonoscopy follow up). A negative Cologuard test result does not guarantee the absence of CRC or advanced adenoma (pre-cancer). The current Cologuard screening interval is every 3 years. ([place] [employer] Society and U.S. Multi-Society Task Force). Cologuard performance data in a 10,000 patient pivotal study using colonoscopy as the reference method can be accessed at the following location: www.Watchwith[employer]/results. Additional description of the Cologuard test process, warnings and precautions can be found at www.[employer].com. Stool (Stool) 08/28/2023 4:4 5 AM TOBACCO HANGER 08/29/2023 9:52 AM TOBACCO HANGER us Yvonne Schmid APRN, C.N .P., D.N.P. LAB BODY FLUIDS AND STOOLS ORDERABLES Final Result [employer] [address] [place] [address] EXLI [employer] [address] [facility], [address] [place] [address] from Last 3 Months or Most Recently Relevant to Health Maintenance Insurance * Guarantor: Raymond Zapata Account Type Relation to Patient Date of Phone Billing Address Personal/Family Self 1960 [id number] [place] [id number] [facility] Care Teams Blood Bank Calendar Control Clerk Relationship Specialty Start Date End Date None Reported, Pcp PCP - General Family Medicine 09/14/23
--- OUTSIDE RECORDS SUMMARY | 2024-10-24 11:21 | XMS_ITS | Encounter Summary ---
Author Organization [facility] Address [address] [place] [id number] Care Team Providers Care Assistant Chief Engineer Name Role Phone Gini Sagastume MD Primary Care Provider [phone] Gini Sagastume MD Unavailable [phone] Ismael Crowe DPM Unavailable [phone] Gini Sagastume MD Primary Care Provider [phone] Encounter Details Date Type Department Care Team (Late st Contact Info) Description 02/02/2024 [facility] Medical Advice [facility] [address] [place] [address] Pat Ng RN Social History Tobacco Use Types Packs/Day Years [...] re latives? 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 Gender Identity Male 02/19/2024 6:19 PM CDT Sexual Orientation Straight 02/19/2024 6: 19 PM CDT documented as of this encounter Plan of Treatment Not on file documented as of this encounter Visit Diagnoses Not on filedocumented in this encounter Care Teams Assistant Chief Engineer Relationship Specialty Start Date End Date Gini Sagastume MD [address] [place] [id number] PCP - General Family Medicine 08/24/21 03/01/24 Gini Sagastume MD [address] [place] [id number] PCP - General Family Medicine 03/02/24 Gini Sagastume MD [address] [place] [id number] Assigned PCP 08/22/21 Ismael Crowe DPM [id number] [facility] [id number] Assigned Surgical Provider 02/04/23 08/17/24 documented as of this encounter
--- OUTSIDE RECORDS SUMMARY | 2024-10-24 11:21 | XMS_ITS | Encounter Summary ---
Author Organization [facility] Address [address] [place] [address]. [place] [address] Care Team Providers Care Inside Outside Sales Representative Name Role Phone Gini Sagastume MD Primary Care Provider [phone] Gini Sagastume MD Unavailable [phone] Ismael Crowe DPM Unavailable [phone] Gini Sagastume MD Primary Care Provider [phone] Encounter Details Date Type Department Care Team (Late st Contact Info) Description 08/29/2023 [facility] Medical Advice [facility] [address] [place] [address] Gini Sagastume MD [address] [place], [place] [id number] Social History Tobacco Use Types Packs/Day Years Used Date Smoking Tobacco: Former Cigarettes Q uit: 2010 Passive Smoke Exposure: Past Smokeless Tobacco: Never Alcohol Use Standard Drinks/Week Comments Not Asked 0 (1 standard drink = 0.6 oz pur e alcohol) PHQ-2 Answer Date Recorded PHQ-2 Score 0 08/16/2023 Adolescent Education Answer Date Record ed Getting School Help Needed Not on file 03/18 Interpersonal Safety Answer Date Record ed Do you feel physically and e motionally safe where you currently live? Yes 08/16/2023 Within the past 12 months, h ave you been hit, slapped, kicked or otherwise physically hurt by someone? No 08/16/2023 Within the past 12 months, h ave you been humiliated or emotionally abused in other ways by your partner or ex-partner? 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 Gender Identity Male 02/19/2024 6:19 PM CDT Sexual Orientation Straight 02/19/2024 6: 19 PM CDT documented as of this encounter Plan of Treatment Not on file documented as of this encounter Visit Diagnoses Not on filedocumented in this encounter Care Teams Inside Outside Sales Representative Relationship Specialty Start Date End Date Gini Sagastume MD [address] [place] [address] PCP - General Family Medicine 08/24/21 03/01/24 Gini Sagastume MD [address] [place] [address] PCP - General Family Medicine 03/02/24 Gini Sagastume MD [address] [place] [address] Assigned PCP 08/22/21 Ismael Crowe DPM [id number] [facility] [place] [id number] Assigned Surgical Provider 02/04/23 08/17/24 documented as of this encounter
--- OUTSIDE RECORDS SUMMARY | 2024-10-24 11:21 | XMS_ITS | Encounter Summary ---
Author Organization [facility] Address [address] [place] [id number] Care Team Providers Care Golf Course Superintendent Name Role Phone Gini Sagastume MD Unavailable [phone] Gini Sagastume MD Primary Care Provider [phone] Reason for Visit * Reason Comments Physical Encounter Details Date Type Department Care Team ([facility] st Contact Info) Description 10/02/2024 5:00 PM CDT Office Visit [facility] [address] [place] [id number] Gini Sagastume MD [address] [place] [address] Routine general medical examination at a health care facility (Primary Dx); Screening for prostate cancer; Pain; Primary hypertension; Elevated prostate specific antigen (PSA); Class 2 severe obesity due to excess calories with serious comorbidity and body mass index (BMI) of 37.0 to 37.9 in adult (H); Low testosterone; Fatty liver Social History Tobacco Use Types Packs/Day Years [...] relatives? 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 However, your care team may have specific advice just for you. Please talk to your care team about your preventive care needs. Nutrition Eat 5 or more servings of fruits and vegetables each day. Try wheat bread, brown rice and whole grain pasta (instead of white bread, rice, and pasta). Get enough calcium and vitamin D. Check the label on foods and aim for 100% of the AUTO DAMAGE APPRAISER (recommendeddaily allowance). Lifestyle Exercise at least 150 minutes each week (30 minutes a day, 5 days a week). Do muscle strengthening activities 2 days a week. These help control your weight and prevent disease. No smoking. Wear sunscreen to prevent skin cancer. Have a dental exam and cleaning every 6 months. Yearly exams See your health care team every year to talk about: Any changes in your health. Any medicines your care team has prescribed. Preventive care, family planning, and ways to prevent chronic diseases. Shots (vaccines) HPV shots (up to age 26), if you've never had them before. Hepatitis B shots (up to age 59), if you've never had them before. COVID-19 shot: Get this shot when it's due. Flu shot: Get a flu shot every year. Tetanus shot: Get a tetanus shot every 10 years. Pneumococcal, hepatitis A, and RSV shots: Ask your care team if you need these based on your risk. Shingles shot (for age 50 and up) General health tests Diabetes screening: Starting at age 35, Get screened for diabetes at least every 3 years. If you are younger than age 35, ask your care team if you should be screened for diabetes. Cholesterol test: At age 39, start having a cholesterol test every 5 years, or more often if advised. Bone density scan (DEXA): At age 50, ask your care team if you should have this scan for osteoporosis (brittle bones). Hepatitis C: Get tested at least once in your life. STIs (sexually transmitted infections) Before age 24: Ask your care team if you should be screened for STIs. After age 24: Get screened for STIs if you're at risk. You are at risk for STIs (including HIV) if: You are sexually active with more than one person. You don't use condoms every time. You or a partner was diagnosed with a sexually transmitted infection. If you are at risk for HIV, ask about PrEP medicine to prevent HIV. Get tested for HIV at least once in your life, whether you are at risk for HIV or not. Cancer screening tests Cervical cancer screening: If you have a cervix, begin getting regular cervical cancer screening tests starting at age 21. Breast cancer scan (mammogram): If you've ever had breasts, begin having regular mammograms starting at age 40. This is a scan to check for breast cancer. Colon cancer screening: It is important to start screening for colon cancer at age 45. Have a colonoscopy test every 10 years (or more often if you're at risk) Or, ask your provider about stool tests like a FIT test every year or Cologuard test every 3 years. To learn more about your testing options, visit: . For help making a decision, visit: https://bit.ly/ig81558. Prostate cancer screening test: If you have a prostate, ask your care team if a prostate cancer screening test (PSA) at age 55 is right for you. Lung cancer screening: If you are a current or former smoker ages 50 to 80, ask your care team if ongoing lung cancer screenings are right for you. For informational purposes only. Not to replace the advice of your health care provider. Copyright ?? 2022 [facility]. All rights reserved. Clinically reviewed by the [facility] Transitions Program. [employer] [id number] - REV 07/19. documented in this encounter Progress Notes * Gini Sagastume MD - 10/02/2024 5:00 PM CDT Images from the original note were not included. Preventive Care Visit [facility] Gini Sagastume MD, Family Medicine Oct 02, 2024 Assessment & Plan Assessment & Plan Routine general medical examination at a health care facility: - Conduct lab work. -Health maintenance updated, preventive services reviewed, vaccines discussed, questions are answered, patient encouraged to continue annual wellness visits to review preventive services Screening for prostate cancer: - Previous elevated PSA levels noted; 5.3 the year before and 8.5 last year. No prostate issues found by urologist two years ago. Patient had been instructed to follow up with urology but never kept appointment, discussed that it is critical to keep appt. Did had prostate biopsies two years ago that were negative. - Conduct lab work to check current PSA levels. Pain -nabutone refilled, has been effective Primary hypertension: - Blood pressure medications are up to date. - Ensure a year's supply of blood pressure medications. Elevated prostate specific antigen (PSA): - Previous elevated PSA levels noted; 5.3 the year before and 8.5 last year. - Conduct lab work to check current PSA levels.Should schedule urology appointment dina Low testosterone: - Testosterone medications are up to date. - Ensure testosterone medications are up to date. Fatty liver -recheck labs today Class 2 severe obesity due to excess calories with serious comorbidity and body mass index (BMI) of37 to 37.9 in adults -obesity likely contributing to hypertension, encouraged lifestyle changes with diet and exercise The longitudinal plan of care for the diagnosis(es)/condition(s) as documented were addressed during this visit. Due to the added complexity in care, I will continue to support Raymond in the subsequent management and with ongoing continuity of care. Appointments - Follow-up appointment with Dr. Gonsales for urology concerns, recommend calling for appointment dina BMI Estimated body mass index is 37.08 kg/m?? as calculated from the following: Height as of this encounter: 1.897 m (6' 2.69). Weight as of this encounter: 133.4 kg (294 lb 3.2 oz). Counseling Appropriate preventive services were addressed with this patient via screening, questionnaire, or discussion as appropriate for fall prevention, nutrition, physical activity, Tobacco-use cessation, social engagement, weight loss and cognition. Checklist reviewing preventive services available has been given to the patient. Reviewed patient's diet, addressing concerns and/or questions. Subjective Raymond is a 63 year old, presenting for the following: Physical 10/02/2024 4:54 PM Additional Questions Roomed by LAUREN Phillips History of Present Illness- - Raymond Zapata, 63-year-old male. - Reports weaker urine stream for the last four to five months. - Rarely takes nabumetone (Relafen), prescribed a year ago, but has been effective, needs refill. - Right foot problems resolved after changing boots. - Elevated PSA levels noted, with a reading of 5.3 the year before last and 8.5 last year. - Saw a urologist two years ago for prostate evaluation, no issues found at that time. Patient was supposed to follow up with urology but he reports that he had to reschedule appointment and never followed up -Urology appt two years ago with prostate biopsies that were benign per patient - Raymond Zapata, 63-year-old male. - Reports weaker urine stream for the last four to five months. - Had a prescription for cyclobenzaprine from urgent care in February 2024. - Rarely takes nabumetone (Relafen), prescribed a year ago. - Right foot problems resolved after changing boots. - Elevated PSA levels noted, with a reading of 5.3 the year before last and 8.5 last year. - Saw a urologist two years ago for prostate evaluation, no issues found at that time. Advance Care Planning Patient does not have a Health Care Directive: Discussed advance care planning with patient; however, patient declined at this time. 10/01/2024 General Health How would you rate your overall physical health? Good Feel stress (tense, anxious, or unable to sleep) Not at all 10/01/2024 Nutrition Three or more servings of calcium each day? Yes Diet: Regular (no restrictions) How many servings of fruit and vegetables per day? 4 or more How many sweetened beverages each day? 0-1 10/01/2024 Exercise Days per week of moderate/strenous exercise 6 days Average minutes spent exercising at this level 60 min 10/01/2024 Social Factors Frequency of gathering with friends or relatives Three times a week Worry food won't last until get money to buy more No Food not last or not have enough money for food? No Do you have housing? (Housing is defined as stable permanent housing and does not include staying ouside in a car, in a tent, in an abandoned building, in an overnight fci, or couch-surfing.) Yes Are you worried about losing your housing? No Lack of transportation? No Unable to get utilities (heat,electricity)? No 10/01/2024 Fall Risk Fallen 2 or more times in the past year? No Trouble with walking or balance? No 10/01/2024 Dental Dentist two times every year? Yes 09/27/2023 TB Screening Were you born outside of the [place]? No Today's PHQ-2 Score: 10/01/2024 7:50 PM PHQ-2 (??1998 [employer]) Q1: Little interest or pleasure in doing things 0 Q2: Feeling down, depressed or hopeless 0 PHQ-2 Score 0 Q1: Little interest or pleasure in doing things Not at all Q2: Feeling down, depressed or hopeless Not at all PHQ-2 Score 0 Patient-reported 10/01/2024 Substance Use Alcohol more than 3/day or more than 7/wk No Do you use any other substances recreationally? No Social History Tobacco Use Smoking status: Former Current packs/day: 0.00 Types: Cigarettes Quit date: 06/26/2010 Years since quittin.2 Passive exposure: Past Smokeless tobacco: Never Vaping Use Vaping status: Former Passive vaping exposure: Yes 10/01/2024 STI Screening New sexual partner(s) since last STI/HIV test? No Last PSA: Prostate Specific Antigen Screen Date Value Ref Range Status 09/27/2023 8.58 (H) 0.00 - 4.50 ng/mL Final 07/24/2021 3.52 < OR = 4.00 ng/mL Final Comment: The total PSA value from this assay system is standardized against the WHO standard. The test result will be approximately 20% lower when compared to the equimolar-standardized total PSA (Kathi Midnight). Comparison of serial PSA results should be interpreted with this fact in mind. This test was performed using the Siemens chemiluminescent method. Values obtained from different assay methods cannot be used interchangeably. PSA levels, regardless of value, should not be interpreted as absolute evidence of the presence or absence of disease. Lab test performed by: [facility] [address] [place] [address] Agustin Jaimes M.D. [facility] Specimen received date and time: 25-JUL-2021 00:25:00.00 PSA Tumor Marker Date Value Ref Range Status 09/27/2023 8.58 (H) 0.00 - 4.50 ng/mL Final ASCVD Risk Mechanical Engineering Officer The 10-year ASCVD risk score (Jackie BAGLEY, et al., 2019) is: 12.4% Values used to calculate the score: Age: 63 years Sex: Male Is Non- : No Diabetic: No Tobacco smoker: No Systolic Blood Pressure: 132 mmHg Is BP treated: Yes HDL Cholesterol: 38 mg/dL Total Cholesterol: 160 mg/dL Reviewed and updated as needed this visit by Provider Tobacco Allergies Meds Problems Med Hx Surg Hx Fam Hx Objective Exam BP 132/80 (BP Location: Right arm, Patient Position: Sitting, Cuff Size: Adult Large) Pulse 65 Temp 97.8 ??F (36.6 ??C) (Tympanic) Resp 16 Ht 1.897 m (6' 2.69) Wt 133.4 kg (294 lb 3.2 oz) SpO2 96% BMI 37.08 kg/m?? Estimated body mass index is 37.08 kg/m?? as calculated from the following: Height as of this encounter: 1.897 m (6' 2.69). Weight as of this encounter: 133.4 kg (294 lb 3.2 oz). Physical Exam GENERAL: alert and no distress EYES: Eyes grossly normal to inspection, PERRL and conjunctivae and sclerae normal HENT: ear canals and TM's normal, nose and mouth without ulcers or lesions NECK: no adenopathy, no asymmetry, masses, or scars RESP: lungs clear to auscultation - no rales, rhonchi or wheezes CV: regular rate and rhythm, normal S1 S2, no S3 or S4, no murmur, click or rub, no peripheral edema MS: no gross musculoskeletal defects noted, no edema SKIN: no suspicious lesions or rashes NEURO: Normal strength and tone, mentation intact and speech normal PSYCH: mentation appears normal, affect normal/bright Signed Electronically by: Gini Sagastume MD documented in this encounter Plan of Treatment Not on file documented as of this encounter Procedures Procedure Name Priority Date/Time Associated Diagnosis Comments PROSTATE SPECIFIC ANTIGEN SCREEN Routine 10/02/2024 5:25 PM CDT Screening for prostate cancer LIPID REFLEX TO DIRECT LDL PANEL Routine 10/02/2024 5:25 PM CDT Fatty liver COMPREHENSIVE METABOLIC PANEL Routine 10/02/2024 5:25 PM CDT Fatty liver documented in this encounter Results * Comprehensive metabolic panel (10/02/2024 5:25 PM [...] 5:25 PM CDT 10/02/2024 5:25 PM CDT us Gini Sagastume MD LAB - BLOOD ORDERABLES Jami dinero Result [facility] [place] [facility] [address] [facility] [address], [address] [place] [address] * (ABNORMAL) PROSTATE SPEC ANTIGEN SCREEN (10/02/2024 5:25 PM CDT) Prostate Specific Antigen Screen 10.90(H) 0.00 - 4.50 ng/mL 10/03/2024 3:03 PM CDT [facility] Blood BLOOD SPECIMEN / Unknown Venipuncture / Unknown 10/02/2024 5:25 PM CDT 10/02/2024 5:[address] [facility] - 10/03/2024 3:03 PM CDT [...] is needed to diagnose prostate pathology. The [employer] recommends annual examination with digital [...] BLOOD ORDERABLES Jami dinero Result [facility] [place] [facility] [address] [facility], [address] [place] [phone] * (ABNORMAL) Lipid panel reflex to direct LDL Non-fasting (10/02/2024 5:25 PM CDT) Pathologist [facility] Cholesterol 174 <200 mg/dL 10/03/2024 3:03 PM [...] BLOOD ORDERABLES Jami l Result [facility] [place] [facility] [address] [facility], [address] [phone] documented in this encounter Visit Diagnoses Diagnosis Routine general medical examination at a health care facility- Primary Screening for prostate cancer Special screening for malignant neoplasm of prostate Pain Generalized pain Primary hypertension Unspecified essential hypertension Elevated prostate specific antigen (PSA) Class 2 severe obesity due to excess calories with serious comorbidity and body mass index (BMI) of 37.0 to 37.9 in adult (H) Low testosterone Other testicular hypofunction Fatty liver Other chronic nonalcoholic liver disease documented in this encounter Care Teams Golf Course Superintendent Relationship Specialty Start Date End Date Gini Sagastume MD [address] [place] [id number] PCP - General Family Medicine 03/02/24 Gini Sagastume MD [address] [place] [id number] Assigned PCP 08/22/21 documented as of this encounter
== END 2024-10-24 11:10 | disposition home or self-care (01) ==
LOC: ED 11:18
PROVIDERS: Emergency Provider Family Medicine
DX: T15.02XA Foreign body in cornea, left eye, initial encounter (principal)
CPT/HCPCS: 65222; 99283; A9270